=== PATIENT | male | born 1960 | race Caucasian/White ===

== ENCOUNTER 2016-08-28 14:34 | Emergency (ER) | payer BC ==
[2016-08-28 14:43] VITALS: RESP 18
[2016-08-28 14:48] VITALS: TEMP 97.7
[2016-08-28] MEDS ORDERED: ONDANSETRON 4 MG/2 ML VIAL IVP STA (15:03)
[2016-08-28] MEDS ORDERED: MORPHINE SULFATE 4 MG/ML SYRINGE IVP STA (15:03)
--- NOTE | 2016-08-28 15:43 | ED ---
Lower Extremity Injury HPI <Deshawn Davis - Last Filed: 08/28/16 18:05> - General Source: patient Mode of arrival: EMS <Parminder Briceno - Last Filed: 08/28/16 19:11> - General Chief Complaint: Extremity Injury, Lower Stated Complaint: rt ankle pain Time Seen by Provider: 08/28/16 14:47 - History of Present Illness Initial Comments: Patient is a 56-year-old male presenting to the emergency department with complains of right ankle pain. Patient states he was stepping off his porch when he missed a step and rolled his ankle. Patient called EMS who applied ice and a splint to his right lower extremity prior to arrival. Onset of injury approximately one hour prior to arrival. Patient states he heard a snap. Patient is currently complaining of a sharp, burning, throbbing pain to his right ankle rated 8 out of 10 with movement, 2 out of 10 at rest, associated with numbness. Patient states he was unable to ambulate at the scene of injury and is unable to ambulate in the emergency department. Patient reports previous ankle fracture to both bilateral extremities in the . No history of recent illness, fevers, nausea, vomiting, shortness of breath, chest pain, or abdominal pain. (Parminder Briceno) - Related Data Home Medications Medication Instructions Recorded Confirmed Esomeprazole Magnesium [NexIUM] 1 tab PO DAILY 08/28/16 08/28/16 Previous Rx's Medication Instructions Recorded HYDROcodone/APAP 5-325MG [Avery 1 - 2 tab PO Q4HR PRN #20 tab 08/28/16 5-325] Allergies Allergy/AdvReac Type Severity Reaction Status Date / Time No Known Allergies Allergy Verified 08/28/16 15:09 Review of Systems ROS Other: All systems not noted in ROS Statement are negative. <Deshawn Davis - Last Filed: 08/28/16 18:05> ROS Other: All systems not noted in ROS Statement are negative. <Parminder Briceno - Last Filed: 08/28/16 19:11> ROS Statement: Those systems with pertinent positive or pertinent negative responses have been documented in the HPI. Past Medical History Past Medical History: No Reported History History of Any Multi-Drug Resistant Organisms: None Reported Past Surgical History: No Surgical Hx Reported Past Psychological History: No Psychological Hx Reported <Parminder Briceno - Last Filed: 08/28/16 19:11> General Exam Limitations: no limitations General appearance: alert, in no apparent distress Head exam: Present: atraumatic, normocephalic, normal inspection Eye exam: Present: normal appearance ENT exam: Present: normal exam, mucous membranes moist, normal external ear exam Neck exam: Present: normal inspection, full ROM. Absent: tenderness, lymphadenopathy Respiratory exam: Present: normal lung sounds bilaterally. Absent: respiratory distress, wheezes, rales, rhonchi Cardiovascular Exam: Present: regular rate, normal rhythm, normal heart sounds. Absent: systolic murmur GI/Abdominal exam: Present: soft, normal bowel sounds. Absent: tenderness Right Knee exam: Present: normal inspection, full ROM. Absent: tenderness, swelling Lower Leg exam: Present: normal inspection, full ROM. Absent: tenderness, swelling Ankle exam: Present: tenderness, swelling. Absent: normal inspection, full ROM Foot/Toe exam: Present: normal inspection, full ROM. Absent: tenderness, swelling Neurovascular tendon exam: Present: no vascular compromise. Absent: pulse deficit, abnormal cap refill, motor deficit, sensory deficit, tendon deficit, extremity cold to touch, pallor, decreased fine/light touch, foot drop, significant pain with passive ROM of distal joint Gait: negative: not tested/not observed Back exam: Present: normal inspection. Absent: tenderness Neurological exam: Present: alert, altered, other (A focal deficits noted) Psychiatric exam: Present: normal affect, normal mood Skin exam: Present: warm, dry, intact <Parminder Briceno - Last Filed: 08/28/16 19:11> Procedures - Procedural Sedation Indications: fracture/dislocation reduction ASA Class: I Mallampati Airway Score: 2 Preparation: branch service specialist applied, pulse oximeter, supplemental O2 applied, suction/airway equipment at bedside, IV secured Complications: none Patient Tolerated Procedure: well, no complications <Deshawn Davis - Last Filed: 08/28/16 18:05> - Orthopedic Joint Reduction Joint #1 Consent Obtained: verbal consent Time Out Performed: Yes Side: right Joint Reduction Location: ankle Analgesia: procedural sedation Shoulder Technique Used (if applicable): traction/counter-traction Technique Used: traction/counter-traction Post-Reduction Neuro Exam: intact Post-Reduction Vascular Exam: intact Post Reduction X-Ray Obtained: Yes Post Reduction X-Ray Results: reduced Splint Applied: Yes Patient Tolerated Procedure: well, no complications <Parminder Briceno - Last Filed: 08/28/16 19:11> Medical Decision Making <Deshawn Davis - Last Filed: 08/28/16 18:05> - Radiology Data Radiology results: report reviewed <Praminder Briceno - Last Filed: 08/28/16 19:11> - Medical Decision Making I saw this patient in conjunction with the physician faculty i on call medical assistant. I performed independent history and physical exam. Agree with case management. I personally performed the procedural sedation and the right ankle closed reduction and splinting as documented. (Deshawn Davis) Trimalleolar fracture dislocation of left ankle. Patient underwent reduction of left ankle. Tolerated procedure well. Patient placed in a short leg OCL and stirrup splint. Patient instructed to follow-up with orthopedic service in next 24-48 hours. Patient agrees to treatment plan. Prescription provided for crutches and pain medicine. Patient instructed to return to the emergency department with increased pain, numbness or tingling, or pallor foot. Discharge instruction and return parameters reviewed. (Parminder Briceno) - Radiology Data Right ankle x-ray: Trimalleolar fracture dislocation at the ankle. Soft tissue swelling is present. Distal fibular diaphysis shows comminuted fragments. Ankle is somewhat posteriorly displaced at that tibiotalar joint, displacement of the medial malleolus is approximately 12 mm. Posterior malleolar displacement also noted in a cephalad direction. X-ray right ankle post reduction: Satisfactory reduction. (Parminder Briceno) Disposition <Deshawn Davis - Last Filed: 08/28/16 18:05> Time of Disposition: 17:50 <Parminder Briceno - Last Filed: 08/28/16 19:11> Clinical Impression: Displaced trimalleolar fracture of left ankle Disposition: HOME SELF-CARE Condition: Good Instructions: Ankle Fracture (ED), Ankle Stirrup Splint (ED), Ankle Dislocation (ED) Additional Instructions: Avoid activity that causes pain Ice 20 minutes 4 times a day usually for 2-3 days Keep elevated as much as possible 24-48 hours. Continue prescribed anti-inflammatory and opiates. Return to the emergency department with symptoms of increased swelling, pain, numbness, tingling, or foot feeling cold to touch. Follow-up with primary service and orthopedic service as directed. Prescriptions: HYDROcodone/APAP 5-325MG [Avery 5-325] 1 - 2 tab PO Q4HR PRN #20 tab PRN Reason: Pain Referrals: Jessi Boudreaux DO [Primary Care Provider] - 1-2 days yBron Briceno MD [STAFF PHYSICIAN] - 1-2 days
--- NOTE | 2016-08-28 15:54 | XR ---
Limited right ankle HISTORY: Trauma and pain, swelling To views of the right ankle There is a trimalleolar fracture dislocation at the ankle. Soft tissue swelling is present. Distal fi bular diaphysis shows comminuted fragments. Ankle is somewhat posteriorly displaced at the tibiotalar joint, displacement of the medial malleolus is approximately the 12 mm. Posterior malleolar displace ment also noted in a cephalad direction. IMPRESSION: Trimalleolar fracture dislocation.
[2016-08-28] MEDS ORDERED: ETOMIDATE 2 MG/ML 10 ML VIAL IVP STA (17:04)
[2016-08-28 18:09] VITALS: PULSE 82
--- NOTE | 2016-08-28 19:06 | XR ---
EXAMINATION TYPE: XR ankle complete RT DATE OF EXAM: 08/28/2016 COMPARISON: NONE HISTORY: Post reduction TECHNIQUE: 3 views FINDINGS: There is a trimalleolar fracture of the right ankle. Fragments are in reasonable anatomic p osition. There is satisfactory reduction compared to the exam earlier today. IMPRESSION: Satisfactory reduction. I see no complicating process.
[2016-08-28 19:41] VITALS: BP 143/82
--- NOTE | 2016-09-28 | CDI ---
Dear Deshawn Davis MD: Please do addendum Start and Stop time of conscious sedation. Thank you, Audelia Bobo, Enrichment Specialist. If you have any questions, please contact Child And Adolescent Psychologist at [phone]. SYLD
== END 2016-08-28 19:20 | disposition home or self-care (01) ==
LOC: EC 14:34
DX: S82.851A Displaced trimalleolar fracture of right lower leg, initial encounter for closed fracture (principal); Z79.899 Other long term (current) drug therapy; X50.9XXA Other and unspecified overexertion or strenuous movements or postures, initial encounter
CPT/HCPCS: 99283 ×2; 27818 ×2; 96374 ×2; 96375 ×2; 99152 ×2; 73600; 73610; J2270; J2405

== ENCOUNTER 2016-09-13 13:05 | Day surgery (SDC) | payer BC ==
[~2016-09-13 13:05] MED LIST: DEXAMETHASONE SOD PHOSPHATE 10 MG/ML 1 ML VIAL IV ONE; HYDROmorphone 1 MG/ML 1 ML SYRINGE IVP PRN; MIDAZOLAM 2 MG/2 ML VIAL IV PRN; ONDANSETRON 4 MG/2 ML VIAL IVP ONE; SCOPOLAMINE 1.5MG/72HR PATCH TRANSDERM ONE; ceFAZolin 2 GM in SODIUM CHLORIDE 0.9% 100 ML IVPB ONE
[2016-09-13] MEDS ORDERED: LIDOCAINE 1% 20 ML VIAL (10MG/ML) FOR IV START INTRADERMA ONE (13:47)
[2016-09-13] MEDS: LACTATED RINGERS 1,000 ML IV SCH (13:47)
[2016-09-13] MEDS ORDERED: LACTATED RINGERS 1,000 ML IV ONE (17:51)
[2016-09-13] MEDS ORDERED: fentaNYL (PF) 50 MCG/ML 2 ML AMP ONE (18:13)
[2016-09-13] MEDS ORDERED: PROPOFOL 10 MG/ML 20 ML VIAL IV ONE (18:13)
[2016-09-13] MEDS ORDERED: GLYCOPYRROLATE 0.2 MG/ML 2 ML VIAL ONE (18:13)
[2016-09-13] MEDS ORDERED: ONDANSETRON 4 MG/2 ML VIAL ONE (18:13)
[2016-09-13] MEDS ORDERED: ROCURONIUM BROMIDE 10 MG/ML 10 ML VIAL IV ONE (18:13)
[2016-09-13] MEDS ORDERED: NEOSTIGMINE 1 MG/ML 10 ML VIAL ONE (18:13)
[2016-09-13] MEDS ORDERED: SUCCINYLCHOLINE CHLORIDE 100 MG/5 ML SYR IV ONE (18:13)
[2016-09-13] MEDS ORDERED: LIDOCAINE 1% INJ 10MG/ML (20 ML MDV) ONE (18:13)
[2016-09-13] MEDS ORDERED: MIDAZOLAM 2 MG/2 ML VIAL ONE (18:13)
[2016-09-13] MEDS ORDERED: PHENYLEPHRINE-0.9% NACL SYG 1 MG/10 ML SYRINGE ONE (18:13)
[2016-09-13] MEDS ORDERED: HYDROmorphone (PF) 1 MG/ML ONE (18:13)
[2016-09-13] MEDS ORDERED: ceFAZolin 1,000 MG in SODIUM CHLORIDE 0.9% 1,000 ML IRRIGATION ONE (19:31)
[2016-09-13] MEDS ORDERED: MAGNESIUM HYDROXIDE 2,400 MG/10 ML CUP PO PRN (20:41)
[2016-09-13] MEDS ORDERED: DIAZEPAM 5 MG TAB PO PRN (20:41)
[2016-09-13] MEDS ORDERED: NALOXONE 0.4 MG/ML 1 ML VIAL IV PRN (20:41)
[2016-09-13] MEDS ORDERED: HYDROcodone/APAP 5-325MG 1 EACH TAB PO PRN (20:41)
[2016-09-13] MEDS ORDERED: HYDROmorphone 1 MG/ML 1 ML SYRINGE IVP PRN (20:41)
[2016-09-13] MEDS ORDERED: SENNOSIDES-DOCUSATE SODIUM 1 EACH TAB PO SCH (21:00)
--- NOTE | 2016-09-13 21:00 | P.OP ---
Date of Procedure: 09/13/16 Preoperative Diagnosis: 1. Closed, right triimalleolar ankle fracture Postoperative Diagnosis: Same Procedure(s) Performed: 1. Open reduction and internal fixation of right trimalleolar ankle fracture ( open reduction and internal fixation of medial and lateral malleolus, nonoperative management posterior malleolus) 2. Manual application of stress by physician for joint radiography, right ankle Implants: Anesthesia: GETA Surgeon: Trevin Cruz Estimated Blood Loss (ml): 150 IV fluids (ml): 800 Pathology: none sent Condition: stable Disposition: PACU Indications for Procedure: The patient is a 56-year-old male who sustained a fall 2 weeks ago resulting in a right ankle fracture dislocation. He was seen in the emergency department where closed reduction and splint application was performed. He was initially seen by my partner Dr. Briceno who then referred him to my office. I met with the patient in the office earlier this week to discuss his injury. Due to the unstable nature of his ankle fracture I recommended surgery. We discussed potential risks and complication of surgery including but not limited to risk of anesthesia, risk of superficial infection, risk of deep infection, risk of delayed wound healing, risk of wound necrosis, risk of damage to local sensory nerves resulting in temporary or permanent numbness, risk of a painful neuroma, risk of fracture nonunion, risk of fracture malunion, risk of postoperative displacement of his ankle fracture, risk of postoperative instability necessitating further surgery, risk of symptomatically hardware, risk of postherpetic arthritis, risk of chronic pain, risk of chronic swelling, risk of difficulty ambulating, risk of difficulty regaining preinjury level of function , risk of dissatisfaction with surgery, risk of postoperative medical complication, and possibly even loss of life or limb. The patient understands these risks and provided his verbal and written consent to go forward with surgery. He also understands that surgery can be unpredictable in their other less common complications are possible. Operative Findings: Description of Procedure: The patient was identified in preoperative holding and the correct right lower extremity was marked with my initials. I reviewed the consent form with the patient and his . All of their questions were answered. The patient was then brought back to the operating room by anesthesia. He was positioned on the operating room table and a general anesthetic and preoperative antibiotics were administered. Preoperative fluoroscopy shots of the left ankle were taken to use as a comparison during surgery. A mortise and lateral x-ray of the left ankle were taken. A tourniquet was then applied to the proximal aspect of the right thigh. A bone foam bump was placed under the right buttock and a bone foam ramp was placed under his right leg. Foam was placed under the left leg in the left leg was then secured to the table. The right leg was then prepped and draped in the standard sterile fashion. Prior to starting surgery timeout was performed identifying the correct patient, operative extremity, and procedure. The patient's leg was then elevated, exsanguinated with Esmarch bandage, and the tourniquet was inflated to 250 mmHg. I began by outlining a straight lateral approach to the distal fibula. Skin incision was made with a 15 blade scalpel and dissection was carried down carefully to the subcutaneous tissue with tenotomy scissors taking care not to inadvertently damage a crossing branch of the superficial peroneal nerve. The fascia overlying the distal fibula was incised longitudinally in line with the skin incision. The fibula fracture was circumferentially exposed. The fracture site was comminuted with several large fragments. Due to the comminution I was unable to get a direct cortical read for my reduction. Since I was unable to place a clamp across the fracture due to comminution I used the contralateral x-ray as a guide. The distal fibula was grasped with a point-to- point reduction clamp and longitudinal traction was placed. Once the fibula was out to length a 625 K wire was placed across the fibula. On the mortise view the fibula appeared to be out to length. On the lateral view the fibula appeared to be symmetric to the contralateral fluoroscopy shot. At this point a 9 hole precontoured plate was placed over the distal fibula. A 35 screw was placed just proximal to the fracture bringing the plate down to the bone. A second 3.5 mm screw was placed in the most proximal hole of the plate. I then placed a 5.0 mm cancellus screw in the most distal cluster of holes to bring the plate down to bone distally. I placed 3 more 3.5 mm screws in the distal cluster of holes. I then proceeded to place a final 3.5 mm screw proximal to the fracture. C-arm fluoroscopy was brought in and the hardware appeared to be in acceptable position. The fibula fracture appeared to be out to length. Attention was then turned to the medial malleolus. A longitudinal incision centered over the medial malleolus made with a 15 blade scalpel. Dissection was carried down to the subcu tissues tissue tenotomy scissors. The saphenous vein was identified and carefully retracted. The fracture site was identified and cleaned of consolidating hematoma and early callus. The fragment was able to be booked open and the joint was carefully irrigated. I did not appreciate any loose fragments or osteochondral defects within the visible portion of the ankle joint. I then used a 2.0 mm drill bit to create a unicortical hole in the tibia proximal to the fracture. 1 praveen of a [id number] reduction clamp was placed in this hole and the second praveen was placed over the tip of the medial malleolus. I gently reduced the medial malleolus fracture. I was able to visualize the anterior shoulder of the medial ankle joint in the reduction appeared to be anatomic. I then placed 20.0625 K wires across the fracture. I then placed two 4.0mm partially threaded cannulated screws over the wires. Both screws generated excellent compression across the fracture site. The clamp and K wires were removed and the medial malleolus fragment remained anatomically reduced. I then performed a manual external rotation stress test. There was slight widening of the medial clear space and the incisor at which I interpreted his instability requiring syndesmotic screw. I placed a large pelvic reduction clamp across the the ankle with 1 praveen in a screw hole in the distal fibular plate and the other praveen centered on the medial aspect distal tibia. C-arm was brought in to verify reduction of the syndesmosis and both the mortise and lateral planes. Once I was happy with the reduction of the syndesmosis a long 2.5 mm drill bit was used to drill all 4 cortices of the distal fibula and tibia. A fully threaded 4.5 mm screw was placed. At this point final Gooden be shots were taken including a mortise and lateral view. The fibula appeared to be out to length and the mortise appeared to be anatomically reduced. On the lateral view the talus was centered under the tibial plafond and there is no displacement of the posterior malleolus fragment. Both wounds were then copiously irrigated. The fascia overlying the distal fibula was closed with a running 0 Vicryl stitch. The deep subcu was reapproximated using 2-0 Vicryl. The skin was closed using 3-0 nylon Kurtisgower modification of the Donati stitch. The fascia over the medial malleolus was closed with interrupted 2-0 Vicryl. The deep subcu was reapproximated using 2- 0 Vicryl. The skin was closed with 3-0 nylon horizontal mattress stitches. I verified that all instrument, sponge, and sharp counts were correct. The tourniquet was let down for total tourniquet time of 56 minutes. A sterile dressing consisting of Brown quarter inch stretchy Steri-Strips in between the stitches, Betadine soaked Adaptic, 4 x 4, and web roll was applied. The drapes were taken down and a well-padded bulky [place] type splint was applied. The patient was awoken from his anesthetic, transferred from the operating room table to the [facility] [place] and brought to PACU without the procedure well. Plan: The patient is going to be admitted overnight for pain control and IV antibiotics. He is remain strictly nonweightbearing in his operative leg. He can discharge home in the morning when he is comfortable.
[2016-09-13] MEDS ORDERED: LIDOCAINE 1% INJ 10MG/ML (10 ML MDV) IM ONE (21:05)
[2016-09-13] MEDS ORDERED: BUPIVACAIN-EPI 0.25%-1:200,000 30 ML VIAL INTRAARTIC ONE (21:05)
--- NOTE | 2016-09-13 21:41 | P.ONQ ---
Anesthesiology Proc Note - PNB - Peripheral Nerve Block Performed Right Popliteal Single Time Out Performed: Yes Procedure Start Time: 21:05 Procedure Stop Time: 21:20 Indication: Acute Post-Operative Pain, Requested by physician Specifically requested for management of pain by DrJordin: Trevin Cruz Sedation Type: Awake Preparation: Sterile Prep Position: Prone Needle Types: Facet Needle Size: 100mm (4") Needle Gauge: 21 Technique: Ultrasound (bupivacaine 0.25% 15 ml with epi 1/200 k plus lidocaine 1 % 5 ml )
--- NOTE | 2016-09-13 21:44 | P.ONQ ---
Anesthesiology Proc Note - PNB - Peripheral Nerve Block Performed Right Adductor Canal Single Procedure Start Time: 21:20 Procedure Stop Time: 21:35 Indication: Acute Post-Operative Pain, Requested by physician Specifically requested for management of pain by DrJordin: Trevin Cruz Sedation Type: Awake Preparation: Sterile Prep Position: Supine Needle Types: Facet Needle Size: 100mm (4") Needle Gauge: 21 Technique: Ultrasound (bupivacaine 0.25% eith epi 1/200 k 15 ml plus lidocaine 1 % 5 ml )
[2016-09-13 22:18] VITALS: BMI 38.0
[2016-09-13] MEDS: ENOXAPARIN 30 MG/0.3 ML SYRINGE SQ SCH (22:25)
[2016-09-13] MEDS: ceFAZolin 2 GM in SODIUM CHLORIDE 0.9% 100 ML IVPB SCH (23:51)
[2016-09-14 01:43] VITALS: RESP 16
[2016-09-14] MEDS: HYDROcodone/APAP 5-325MG 1 EACH TAB PO PRN ×2 (06:51→13:13)
[2016-09-14] MEDS: ceFAZolin 2 GM in SODIUM CHLORIDE 0.9% 100 ML IVPB SCH (07:49)
[2016-09-14] MEDS: LACTATED RINGERS 1,000 ML IV SCH (07:50)
[2016-09-14] MEDS: ENOXAPARIN 30 MG/0.3 ML SYRINGE SQ SCH (08:30)
--- NOTE | 2016-09-14 08:57 | FL ---
EXAMINATION TYPE: FL guidance operating room DATE OF EXAM: 09/13/2016 HISTORY: Flouroscopy time 79 seconds of fluoroscopy provided. IMPRESSION: 1. Fluoroscopy time.
[2016-09-14] MEDS ORDERED: CALCIUM CARBONATE 500 MG CHEWABLE PO SCH (09:00)
--- NOTE | 2016-09-14 09:00 | XR ---
EXAMINATION TYPE: XR ankle limited RT DATE OF EXAM: 09/13/2016 COMPARISON: NONE HISTORY: ORIF TECHNIQUE: One image submitted FINDINGS: Surgical change appears in near-anatomic alignment. IMPRESSION: Surgical changes
[2016-09-14] MEDS ORDERED: CHOLECALCIFEROL 1,000 UNIT TAB PO SCH (12:00)
[2016-09-14] MEDS ORDERED: MULTIVITAMINS, THERA 1 EACH TAB PO SCH (12:00)
[2016-09-14 14:26] VITALS: BP 126/70; PULSE 83; TEMP 97.8
--- NOTE | 2016-09-14 15:47 | P.DS ---
Providers Date of admission: 09/13/2016 Expected date of discharge: 09/14/16 Attending physician: Trevin Cruz Primary care physician: Jessi Boudreaux - Discharge Diagnosis(es) (1) Displaced trimalleolar fracture of left ankle Patient was admitted the OR yesterday 09/13/2016 to undergo ORIF of right trimalleolar ankle fracture. He underwent the above procedure which he tolerated well without complication. His postoperative hospital course has remained without complication. On day of discharge he desires discharge to home. He is afebrile, vital signs stable, labs within acceptable ranges, tolerating by mouth meds and diet, pain controlled on oral pain medication, voiding without difficulty, passing flatus, splint and wound benign, neurovascular status intact, abdomen soft nontender, and denying any new complaints. Review of systems negative for fever, chills, chest pain, shortness breath, nausea, vomiting, dizziness, headaches, rashes, bleeding, slurred speech or other. Current Visit: No Status: Acute Priority: Medium Procedures: ORIF right ankle fracture Patient Condition at Discharge: Good Plan - Discharge Summary New Discharge Prescriptions: New HYDROcodone/APAP 10-325MG [B[place] 10-325] 1 tab PO Q4HR PRN #50 tab PRN Reason: Pain Docusate [Colace] 100 mg PO BID #28 capsule Aspirin 325 mg PO BID #28 tab Cholecalciferol (Vitamin D3) [Vitamin D3] 2,000 unit PO DAILY #60 capsule No Action Esomeprazole Magnesium [NexIUM] 1 tab PO DAILY HYDROcodone/APAP 5-325MG [[place] 5-325] 1 - 2 tab PO Q4HR PRN #20 tab PRN Reason: Pain Discharge Medication List Esomeprazole Magnesium [NexIUM] 1 tab PO DAILY 08/28/16 [History] HYDROcodone/APAP 5-325MG [[place] 5-325] 1 - 2 tab PO Q4HR PRN #20 tab 08/28/16 [ Rx] Aspirin 325 mg PO BID #28 tab 09/13/16 [Rx] Cholecalciferol (Vitamin D3) [Vitamin D3] 2,000 unit PO DAILY #60 capsule [Rx] Docusate [Colace] 100 mg PO BID #28 capsule 09/13/16 [Rx] HYDROcodone/APAP 10-325MG [[place] 10-325] 1 tab PO Q4HR PRN #50 tab 09/13/16 [Rx] Follow up Appointment(s)/Referral(s): Trevin Cruz MD [Medical Doctor] - 10/10/16 9:30 am Patient Instructions/Handouts: ORIF of an Ankle Fracture (DC) Activity/Diet/Wound Care/Special Instructions: 1. Strict non-weight bearing operative leg 2. Keep splint clean and dry 3. Do not remove your splint 4. Use crutches or a knee scooter to ambulate 5. Keep your leg elevated on pillow 6. Follow-up in the office 2 weeks after surgery. Discharge Disposition: HOME SELF-CARE
== END 2016-09-14 17:24 | disposition home or self-care (01) ==
LOC: OR 13:05 → 3SUR 20:22 → OR 09-14 17:24
PROVIDERS: ATTEND Orthopaedic Surgery
DX: S82.851A Displaced trimalleolar fracture of right lower leg, initial encounter for closed fracture (principal); W10.9XXA Fall (on) (from) unspecified stairs and steps, initial encounter; K21.9 Gastro-esophageal reflux disease without esophagitis; Z79.899 Other long term (current) drug therapy; Z88.0 Allergy status to penicillin; Z87.891 Personal history of nicotine dependence
CPT/HCPCS: 93005; 97161; 82306; 73600; 27822; 77071; C1713; J2250; J1100; J2710; J0690 ×3; J2405; J2001 ×2; J3010; J1650 ×2; J1170; J2370; J0330; J2704

== ENCOUNTER 2020-09-03 08:29 | Day surgery (SDC) | payer BC ==
[2020-08-31 18:19] VITALS: BMI 37.0
[~2020-09-03 08:29] MED LIST changes: -DEXAMETHASONE SOD PHOSPHATE 10 MG/ML 1 ML VIAL IV ONE; -HYDROmorphone 1 MG/ML 1 ML SYRINGE IVP PRN; +LACTATED RINGERS 1,000 ML IV SCH; -MIDAZOLAM 2 MG/2 ML VIAL IV PRN; -ONDANSETRON 4 MG/2 ML VIAL IVP ONE; -SCOPOLAMINE 1.5MG/72HR PATCH TRANSDERM ONE; -ceFAZolin 2 GM in SODIUM CHLORIDE 0.9% 100 ML IVPB ONE
[2020-09-03 09:29] VITALS: RESP 16; TEMP 98
[2020-09-03] MEDS ORDERED: PROPOFOL 10 MG/ML 20 ML VIAL IV ONE (10:17)
--- NOTE | 2020-09-03 10:19 | P.GSHP ---
History of Present Illness H&P Date: 09/03/20 Chief Complaint: Screening colonoscopy 60-year-old male who presents today for screening colonoscopy. He denies any significant GI complaints. Past Medical History Past Medical History: GERD/Reflux, Hypertension Additional Past Medical History / Comment(s): FX RT ANKLE-08/28/16. HIATAL HERNIA History of Any Multi-Drug Resistant Organisms: None Reported Past Surgical History: Orthopedic Surgery Additional Past Surgical History / Comment(s): COLONOSCOPY. ORIF Rt ankle. Past Anesthesia/Blood Transfusion Reactions: Previous Problems w/ Anesthesia Additional Past Anesthesia/Blood Transfusion Reaction / Comment(s): Awoke during end of surgery, "some diff catching breath." Smoking Status: Former smoker - Past Family History Brother(s) Family Medical History: Cancer Additional Family Medical History / Comment(s): 1 brother had oral cancer; 1 had skin cancer Medications and Allergies Home Medications Medication Instructions Recorded Confirmed Type Esomeprazole Magnesium [NexIUM] 1 tab PO DAILY PRN 08/28/16 08/31/20 History Ergocalciferol [Vitamin D2 (1250 1,250 mcg PO TH 08/31/20 08/31/20 History Mcg = [id number] Iu)] Losartan Potassium [Cozaar] 100 mg PO DAILY 08/31/20 08/31/20 History amLODIPine BESYLATE 5 mg PO DAILY 08/31/20 08/31/20 History Allergies Allergy/AdvReac Type Severity Reaction Status Date / Time Penicillins Allergy Unknown Verified 08/31/20 18:01 Childhood Surgical - Exam Vital Signs Temp Pulse Resp BP Pulse Ox 98.0 F 72 16 152/80 97 09/03/20 09:26 09/03/20 09:26 09/03/20 09:26 09/03/20 09:26 09/03/20 09:26 - General well developed, well nourished, no distress - Eyes PERRL - ENT normal pinna - Neck no masses - Respiratory normal expansion - Cardiovascular Rhythm: regular - Abdomen Abdomen: soft, non tender Assessment and Plan Assessment: We'll perform screening colonoscopy.
--- NOTE | 2020-09-03 10:28 | P.OP ---
Date of Procedure: 09/03/20 Preoperative Diagnosis: Screening colonoscopy Postoperative Diagnosis: Normal colon Procedure(s) Performed: Colonoscopy Anesthesia: MAC Surgeon: Supa Murphy Pathology: other Condition: stable Disposition: PACU Description of Procedure: PROCEDURE: The patient was placed on the endoscopy table in the lateral position. Digital rectal examination was performed which revealed no abnormalities. The prostate was symmetrical without nodules. Flexible colonoscope was then placed in the patient's anus and passed throughout the entire colon. The ileocecal valve was visualized. The cecum, ascending, transverse, descending and sigmoid colon were normal. The rectum was normal as well. There were no masses, polyps or diverticula noted in the entire colon. SUMMARY OF FINDINGS: Normal colonoscopy.
[2020-09-03 10:33] VITALS: BP 113/76; PULSE 67
== END 2020-09-03 10:58 | disposition home or self-care (01) ==
LOC: ORWHC2ENDO 08:29
PROVIDERS: ATTEND Surgery
DX: Z12.11 Encounter for screening for malignant neoplasm of colon (principal); K21.9 Gastro-esophageal reflux disease without esophagitis; I10 Essential (primary) hypertension; Z87.81 Personal history of (healed) traumatic fracture; Z98.890 Other specified postprocedural states; Z87.891 Personal history of nicotine dependence; Z80.8 Family history of malignant neoplasm of other organs or systems; Z79.899 Other long term (current) drug therapy; Z88.0 Allergy status to penicillin
CPT/HCPCS: J2704; G0121

== ENCOUNTER → 2022-03-09 | Outpatient (CLI) | payer BC ==
[2022-03-10 00:41] LABS: Basophils # (A) 0.04 X 10*3/uL (0.00-0.10); Basophils % (A) 0.6 %; Eosinophils # (A) 0.19 X 10*3/uL (0.04-0.35); HCT 41.8 % (39.6-50.0); HGB 13.8 g/dL (13.0-17.0); Immature Grans, Automated 0.3 %; Lymphocytes # (A) 1.95 X 10*3/uL (0.90-5.00); Lymphocytes % (A) 30.4 %; MCH 31.6 pg (27.0-32.0); MCV 95.7 fL (80.0-97.0); Mean Platelet Volume 9.8 fL (9.5-12.2); Monocytes # (A) 0.62 X 10*3/uL (0.20-1.00); Monocytes % (A) 9.7 %; NRBC Per 100 WBC 0 /100 WBCS (0.0-0.0); Platelet Count 278 X 10*3/uL (140-440); RBC 4.37 X 10*6/uL (4.40-5.60); RDW 13.4 % (11.5-14.5); WBC 6.42 X 10*3/uL (4.50-10.00)
== END | disposition home or self-care (01) ==
LOC: LABPAT 14:18
PROVIDERS: ATTEND Surgery
DX: Z01.818 Encounter for other preprocedural examination (principal); K42.9 Umbilical hernia without obstruction or gangrene; I45.10 Unspecified right bundle-branch block; I49.8 Other specified cardiac arrhythmias; R94.31 Abnormal electrocardiogram [ECG] [EKG]
CPT/HCPCS: 85025; 93005

== ENCOUNTER 2022-03-15 06:38 | Day surgery (SDC) | payer BC ==
[~2022-03-15 06:38] MED LIST changes: +ACETAMINOPHEN TAB 500 MG TAB PO PRN; +DEXAMETHASONE SOD PHOSPHATE 4 MG/ML 1 ML VIAL IV ONE; +HEPARIN SODIUM,PORCINE/PF 5,000 UNIT/0.5 ML SYRINGE SQ PRN; +HYDROmorphone 0.5 MG/0.5 ML SYRINGE IVP PRN; +LIDOCAINE 1% (10MG/ML) FOR IV START INTRADERMA PRN; +ONDANSETRON 4 MG/2 ML VIAL IVP ONE
[2022-03-15 08:11] LABS: Glucose,Whole Blood 104 mg/dL (70-110)
[2022-03-15] MEDS ORDERED: MIDAZOLAM 2 MG/2 ML VIAL IVP ONE (08:32)
[2022-03-15] MEDS ORDERED: fentaNYL (PF) 50 MCG/ML 2 ML AMP ONE (09:02)
[2022-03-15] MEDS ORDERED: DEXAMETHASONE SOD PHOSPHATE 4 MG/ML 1 ML VIAL ONE (09:02)
[2022-03-15] MEDS ORDERED: SODIUM CHLORIDE 0.9% (PF) 10 ML VIAL ONE (09:02)
[2022-03-15] MEDS ORDERED: GLYCOPYRROLATE 0.2 MG/ML 2 ML VIAL ONE (09:02)
[2022-03-15] MEDS ORDERED: PROPOFOL 10 MG/ML 20 ML VIAL IV ONE (09:02)
[2022-03-15] MEDS ORDERED: LIDOCAINE 2% INJ 20 MG/ML (2 ML VIAL) ONE (09:02)
[2022-03-15] MEDS ORDERED: NEOSTIGMINE 1 MG/ML 10 ML VIAL ONE (09:02)
[2022-03-15] MEDS ORDERED: SUCCINYLCHOLINE CHLORIDE 200 MG/10 ML VIAL IV ONE (09:02)
[2022-03-15] MEDS ORDERED: ROCURONIUM 10 MG/ML (5 ML VIAL) IV ONE (09:02)
[2022-03-15] MEDS ORDERED: KETAMINE 10 MG/ML 20 ML VIAL ONE (09:02)
[2022-03-15] MEDS ORDERED: ROPIVACAINE 5 MG/ML 30 ML VIAL ONE (09:02)
[2022-03-15] MEDS ORDERED: BUPIVACAIN-EPI 0.25%-1:200,000 30 ML VIAL SQ ONE (09:30)
[2022-03-15 10:12] VITALS: TEMP 97
[2022-03-15 10:21] VITALS: RESP 16
--- NOTE | 2022-03-15 10:34 | P.OP ---
Date of Procedure: 03/15/22 Preoperative Diagnosis: Incarcerated umbilical hernia Postoperative Diagnosis: Incarcerated umbilical hernia Procedure(s) Performed: Laparoscopic robotic system repair of incarcerated umbilical hernia Transversus abdominis plane block Partial omentectomy Anesthesia: DIAN Surgeon: Supa Murphy Estimated Blood Loss (ml): 5 Pathology: other (Omentum) Condition: stable Disposition: PACU Description of Procedure: The patient was placed on the operating table in the supine position. He received general anesthesia. His abdomen was prepped and draped usual fashion. Using a 5 mm optical trocar under direct visualization the peritoneal cavity was entered in the left upper quadrant. The abdomen was then insufflated. The laparoscope was placed back into the perineal cavity. Next a 8 mm robotic trocar was placed in the left lower quadrant and a 12 mm robotic trocar was placed in the left lateral position. The original 5 mm trocar was exchanged for a 8 mm robotic trocar. A four-quadrant transversus abdominis plane block was then performed using 1% local Xylocaine. The patient's placed in the left side up position. And the patient was docked the robot. The umbilical hernia was visualized. Using hook cautery the peritoneum over the umbilical hernia was excised. Incarcerated omentum was dissected free sent to pathology. The fascial opening was repaired using 0V LOC suture. Next a piece of 11 cm round ventral light ST mesh was placed into the. Cavity and secured with 2 OV lock suture. The patient was undocked the robot. The needles were retrieved. The fascia of the 12 mm trocar site was closed with 0 Ethibond suture. Skin was closed inter rupted 3-0 Monocryl suture. Dermabond dressings was applied. Patient top procedure well and was sent to recovery room stable condition.
[2022-03-15 12:31] VITALS: BP 158/80; PULSE 87
--- NOTE | 2022-03-16 10:55 | P.ANPRN ---
Procedure Note - Anesthesia - Nerve Block Performed Bilateral Erector Spinae Single Time Out Performed: Yes Date of Procedure: 03/15/22 Procedure Start Time: : Procedure Stop Time: :37 Location of Patient: PreOp Indication: Acute Post-Operative Pain, Requested by Surgeon Sedation Type: Sedate with meaningful contact maintained Preparation: Sterile Prep Position: Prone Needle Types: Pajunk Needle Gauge: 21 Ultrasound used to visualize needle placement: Yes Ultrasound used to observe medication spread: Yes Blood Aspirated: No Pain Paresthesia on Injection Noted: No Resistance on Injection: Normal Image Stored and Saved: Yes Events: Uneventful and Well Tolerated (Ropivacaine 0.5% 15 mL plus normal saline 10 mL plus dexamethasone 4 mg given at L1 bilaterally)
== END 2022-03-15 13:13 | disposition home or self-care (01) ==
LOC: OR 06:38
PROVIDERS: ATTEND Surgery
DX: K42.0 Umbilical hernia with obstruction, without gangrene (principal); I45.10 Unspecified right bundle-branch block; I10 Essential (primary) hypertension; K21.9 Gastro-esophageal reflux disease without esophagitis; Z87.891 Personal history of nicotine dependence; F32.A Depression, unspecified; Z88.0 Allergy status to penicillin; Z79.82 Long term (current) use of aspirin; Z79.2 Long term (current) use of antibiotics; Z79.811 Long term (current) use of aromatase inhibitors; Z98.890 Other specified postprocedural states
CPT/HCPCS: 64999; 86900; 86901; 86850; 88302; C1781; J2250; J0330; J1100; J2710; J0690; J2405; J3010; J2795; J2704; J1170; J1644; J2001